=== PATIENT | female | born 1955 | race Caucasian/White ===

== ENCOUNTER → 2019-09-12 | Outpatient (CLI) | payer BC, OTHER, MEDICARE ==
[~2019-09-12] MED LIST: ESTRACE TP; LEVO75TA59 PO
== END | disposition home or self-care (01) ==
LOC: CFH 14:37
PROVIDERS: ATTEND Internal Medicine Cardiovascular Disease
DX: I35.9 Nonrheumatic aortic valve disorder, unspecified (principal); I48.91 Unspecified atrial fibrillation
CPT/HCPCS: 93306; 93356

== ENCOUNTER → 2019-10-26 | Outpatient (CLI) | payer BC, MEDICARE, OTHER | END | disposition home or self-care (01) | LOC: CFH 11:41 | PROVIDERS: ATTEND Internal Medicine Cardiovascular Disease | DX: I48.91 Unspecified atrial fibrillation (principal); R07.89 Other chest pain | CPT/HCPCS: 78452; 93017; A9502 ==

== ENCOUNTER 2020-01-10 07:38 | Observation (INO) | payer BC, MEDICARE, OTHER ==
[~2020-01-10] VITALS: Ht 167.6 cm; Wt 60.8 kg
[2020-01-10] MEDS ORDERED: FENTANYL PF 100 MCG/2ML ONE (08:32)
[2020-01-10] MEDS ORDERED: MIDAZOLAM 1 MG/ML, 5ML ONE (08:32)
[2020-01-10] MEDS ORDERED: LIDOCAINE 2%, 20ML ONE (08:32)
[2020-01-10 08:39] VITALS: BP 109/72
[2020-01-10] MEDS ORDERED: ASPI81TA45 PO (08:45)
[2020-01-10 09:01] LABS: BASOPHILS # (AUTO) 0.03 x10^3/uL (0-0.1); BASOPHILS % (AUTO) 1 % (0-1); EOSINOPHILS # (AUTO) 0.32 x10^3/uL (0-0.4); EOSINOPHILS % (AUTO) 7 % (1-7); LYMPHOCYTES # (AUTO) 1.39 x10^3/uL (1-3.4); LYMPHOCYTES % (AUTO) 32 % (22-44); MD NO; MEAN CORPUSCULAR HEMOGLOBIN 30.3 pg (27.0-34.8); MEAN CORPUSCULAR HGB CONC 32.7 g/dL (32.4-35.8); MEAN CORPUSCULAR VOLUME 92.8 fL (80-100); MEAN PLATELET VOLUME 7.2 fL (7.4-10.4); MONOCYTES # (AUTO) 0.38 x10^3/uL (0.2-0.8); MONOCYTES % (AUTO) 9 % (2-9); NEUTROPHILS # (AUTO) 2.21 x10^3/uL (1.8-6.8); NEUTROPHILS % (AUTO) 51 % (42-75); PLATELET COUNT 286 x10^3/uL (130-400); RED BLOOD COUNT 4.27 x10^6/uL (3.82-5.3); RED CELL DISTRIBUTION WIDTH 13.5 % (9.6-15.2)
[2020-01-10 09:15] LABS: ANION GAP 4 mmol/L (5-15); CALCIUM 9.2 mg/dL (8.5-10.1); CHLORIDE 109 mmol/L (98-107)
[2020-01-10] MEDS ORDERED: ACETAMINOPHEN 650 MG/20.3 ML UDC PO PRN (14:30)
[2020-01-10] MEDS ORDERED: ONDANSETRON 2MG/ML, 2ML IV PRN (14:30)
[2020-01-10 15:52] VITALS: BP 140/86
[2020-01-10 16:26] LABS: BASOPHILS # (AUTO) 0.02 x10^3/uL (0-0.1); BASOPHILS % (AUTO) 0 % (0-1); EOSINOPHILS # (AUTO) 0.35 x10^3/uL (0-0.4); EOSINOPHILS % (AUTO) 5 % (1-7); LYMPHOCYTES % (AUTO) 29 % (22-44); MD NO; MEAN CORPUSCULAR HEMOGLOBIN 30.8 pg (27.0-34.8); MEAN CORPUSCULAR VOLUME 93.1 fL (80-100); MEAN PLATELET VOLUME 7.3 fL (7.4-10.4); MONOCYTES # (AUTO) 0.59 x10^3/uL (0.2-0.8); MONOCYTES % (AUTO) 9 % (2-9); NEUTROPHILS % (AUTO) 57 % (42-75); PLATELET COUNT 284 x10^3/uL (130-400); RED BLOOD COUNT 4.42 x10^6/uL (3.82-5.3)
[2020-01-10 16:33] LABS: PROTHROMBIN TIME 10.3 Seconds (9.6-11.5)
[2020-01-10 16:35] LABS: ANION GAP 5 mmol/L (5-15); CHLORIDE 111 mmol/L (98-107); CREATININE 0.88 mg/dL (0.55-1.02)
[2020-01-10] MEDS ORDERED: GADOTERATE 7.5 MMOL/15 ML SYR ONE (16:51)
[2020-01-10] MEDS: ASPIRIN 81 MG TABLET CHEW PO SCH (17:59)
[2020-01-10] MEDS: CLOPIDOGREL 75 MG TABLET PO SCH (18:00)
[2020-01-10] MEDS: POTASSIUM CHLORIDE 10 MEQ in SODIUM CHLORIDE 0.9% 1,000 ML IV SCH (18:00)
[2020-01-10] MEDS: SODIUM CHLORIDE FLUSH 10ML SYR IVF SCH (20:37)
[2020-01-10 20:40] VITALS: BP 128/82
[2020-01-11] VITALS: BP 106/65
[2020-01-11] MEDS: POTASSIUM CHLORIDE 10 MEQ in SODIUM CHLORIDE 0.9% 1,000 ML IV SCH ×2 (03:40→13:00)
[2020-01-11 05:02] LABS: BASOPHILS # (AUTO) 0.03 x10^3/uL (0-0.1); BASOPHILS % (AUTO) 1 % (0-1); EOSINOPHILS # (AUTO) 0.41 x10^3/uL (0-0.4); EOSINOPHILS % (AUTO) 7 % (1-7); LYMPHOCYTES # (AUTO) 1.78 x10^3/uL (1-3.4); LYMPHOCYTES % (AUTO) 31 % (22-44); MD NO; MEAN CORPUSCULAR HGB CONC 33.1 g/dL (32.4-35.8); MEAN CORPUSCULAR VOLUME 93.6 fL (80-100); MEAN PLATELET VOLUME 7.6 fL (7.4-10.4); MONOCYTES # (AUTO) 0.54 x10^3/uL (0.2-0.8); MONOCYTES % (AUTO) 9 % (2-9); NEUTROPHILS # (AUTO) 3.08 x10^3/uL (1.8-6.8); NEUTROPHILS % (AUTO) 53 % (42-75); PLATELET COUNT 243 x10^3/uL (130-400); RED BLOOD COUNT 3.96 x10^6/uL (3.82-5.3); RED CELL DISTRIBUTION WIDTH 13.7 % (9.6-15.2)
[2020-01-11 05:11] LABS: ANION GAP 3 mmol/L (5-15); CALCIUM 8.6 mg/dL (8.5-10.1); CHLORIDE 113 mmol/L (98-107); CREATININE 0.91 mg/dL (0.55-1.02)
[2020-01-11] MEDS ORDERED: LEVOTHYROXINE 75 MCG TABLET PO SCH (06:00)
[2020-01-11 07:25] VITALS: BP 134/78
[2020-01-11] MEDS: CLOPIDOGREL 75 MG TABLET PO SCH (08:35)
[2020-01-11] MEDS: SODIUM CHLORIDE FLUSH 10ML SYR IVF SCH (08:35)
[2020-01-11] MEDS: ASPIRIN 81 MG TABLET CHEW PO SCH (08:35)
[2020-01-11] MEDS ORDERED: ASPIRIN 325 MG TABLET EC PO SCH (09:00)
[2020-01-11] MEDS ORDERED: CLOPIDOGREL 75 MG TABLET PO SCH (09:00)
[2020-01-11] MEDS ORDERED: CLOP75TA PO (10:21)
[2020-01-11] MEDS ORDERED: ATOR20TA37 PO (10:21)
[2020-01-11] MEDS ORDERED: APIX5TAB PO (10:21)
== END 2020-01-11 14:07 | disposition home or self-care (01) ==
LOC: CACL 07:38 → 5SO 15:20 → CACL 22:42 → DCLOUNGE 01-11 13:36
PROVIDERS: ADMIT Internal Medicine Cardiovascular Disease; ATTEND Internal Medicine Cardiovascular Disease
DX: R07.89 Other chest pain (principal); I48.0 Paroxysmal atrial fibrillation; H53.2 Diplopia; D68.69 Other thrombophilia; R00.2 Palpitations; E03.9 Hypothyroidism, unspecified; Z90.710 Acquired absence of both cervix and uterus; Z79.899 Other long term (current) drug therapy; Z79.82 Long term (current) use of aspirin; Z79.01 Long term (current) use of anticoagulants
CPT/HCPCS: 36415; 70450; 70544; 70553; 80048; 82962; 83735; 85025; 85520; 85610; 93005; 93458; 96360; 96361; 99156; A9575; C1760; C1769; C1894; G0378; J2250; J3010; J3480; J3490; J7030; Q9967

== ENCOUNTER 2020-04-15 08:06 | Day surgery (SDC) | payer BC, MEDICARE, OTHER ==
[~2020-04-15] VITALS: Ht 167.6 cm; Wt 61.4 kg
[~2020-04-15 08:06] MED LIST changes: +APIX5TAB PO; +ASPI81TA45 PO; +ATOR20TA37 PO; +CLOP75TA PO
[2020-04-15 08:38] VITALS: BP 120/82
[2020-04-15] MEDS ORDERED: METO25TA2 PO (08:48)
[2020-04-15] MEDS ORDERED: SODIUM CHLORIDE 0.9% 1,000 ML IV SCH (09:00)
[2020-04-15] MEDS ORDERED: MIDAZOLAM 1 MG/ML, 2ML ONE ×2 (09:28→11:08)
[2020-04-15] MEDS ORDERED: FENTANYL PF 100 MCG/2ML ONE ×2 (09:29→11:16)
[2020-04-15] MEDS ORDERED: ISOPROTERENOL 0.2MG/ML, 5ML ONE (09:29)
[2020-04-15] MEDS ORDERED: LIDOCAINE 1%, 20ML ONE (09:29)
[2020-04-15] MEDS ORDERED: METOPROLOL SUCCINATE 25 MG TAB.ER.24H PO SCH (21:00)
[2020-04-15] MEDS ORDERED: ATORVASTATIN 20 MG TABLET PO SCH (21:00)
[2020-04-15] MEDS ORDERED: APIXABAN 5 MG TABLET PO SCH (21:00)
[2020-04-16] MEDS ORDERED: LEVOTHYROXINE 75 MCG TABLET PO SCH (09:00)
== END 2020-04-15 16:00 | disposition home or self-care (01) ==
LOC: CACL 08:06
PROVIDERS: ATTEND Internal Medicine Cardiovascular Disease
DX: I47.1 Supraventricular tachycardia (principal); I48.92 Unspecified atrial flutter; Z88.5 Allergy status to narcotic agent
CPT/HCPCS: 93613; 93621; 93623; 93653; 99156; 99157; C1730; C1732; C1766; C1894; C2630; J2250; J3010